=== PATIENT | female | born 1975 | race Two or more races ===

== ENCOUNTER 2023-07-22 21:37 | Emergency (ER) | payer MEDICAID, OTHER ==
[~2023-07-22] VITALS: Ht 165.1 cm; Wt 61.4 kg
[2023-07-22] MEDS ORDERED: CEPH500C PO (21:59)
[2023-07-22] MEDS ORDERED: BACDST PO (21:59)
[2023-07-22] MEDS ORDERED: ACET-1304 PO (21:59)
[2023-07-22] MEDS ORDERED: IBUP-1454 PO (21:59)
[2023-07-22] MEDS: CEPHALEXIN 250 MG CAP PO ONE (22:00)
[2023-07-22] MEDS: IBUPROFEN 600 MG TAB PO ONE (22:37)
[2023-07-22] MEDS: ACETAMINOPHEN 325 MG TAB PO ONE (22:37)
[2023-07-22] MEDS: LORazepam 0.5 MG TAB PO ONE (22:37)
[2023-07-22] MEDS: cefTRIAXone SOD 1,000 MG VL IM ONE (22:44)
[2023-07-23 00:50] VITALS: BP 110/80; PULSE 94; RESP 12; TEMP 98; O2SAT 97
== END 2023-07-23 01:16 | disposition home or self-care (01) ==
LOC: EDBD 21:37 → ER 21:37
DX: L03.012 Cellulitis of left finger (principal); S61.305A Unspecified open wound of left ring finger with damage to nail, initial encounter; W22.8XXA Striking against or struck by other objects, initial encounter; Y93.89 Activity, other specified; Y92.89 Other specified places as the place of occurrence of the external cause; Y99.8 Other external cause status
CPT/HCPCS: 96372; 99284; J0696